=== PATIENT | male | born 1960 | race Caucasian/White ===

== ENCOUNTER 2017-12-27 06:00 | Day surgery (SDC) | payer OTHER ==
[2017-12-24 11:39] LABS: HEMATOCRIT 46.5 % (42.0-54.0); MCH 31.2 pg (26.0-34.0); MCHC 34.4 g/dL (31.0-37.0); MCV 90.6 fL (80.0-100.0); MEAN PLATELET VOLUME 9.8 fL (7.4-10.4); RBC 5.13 10x6/uL (4.20-6.10); RDW 12.4 % (11.5-14.5); WBC 5.7 10x3/uL (4.8-10.8)
[~2017-12-27] VITALS: Ht 172.7 cm; Wt 82.1 kg
[~2017-12-27 06:00] MED LIST: ASPIRIN325 MG PO
[2017-12-27 06:12] VITALS: BP 106/70; Ht 172.7 cm; Wt 82.1 kg
[2017-12-27] MEDS ORDERED: HYDROCODON-ACE1 EAC7 PO (09:33)
[2017-12-27] MEDS ORDERED: FLOMAX0.4 MG PO (09:33)
[2017-12-27] MEDS ORDERED: FUROSEMIDE20 MG PO (09:33)
== END 2017-12-27 12:10 | disposition home or self-care (01) ==
LOC: D.OPS 06:00 → D.PAN 08:55 → D.OPS 11:15
PROVIDERS: Anesthesiology
DX: K40.20 Bilateral inguinal hernia, without obstruction or gangrene, not specified as recurrent (principal); Z95.0 Presence of cardiac pacemaker; Z01.812 Encounter for preprocedural laboratory examination